=== PATIENT | female | born 1960 | race American Indian/Alaskan Native ===

== ENCOUNTER 2019-04-10 06:53 | Day surgery (SDC) | payer MEDICARE ==
[2019-04-10 07:27] VITALS: BMI 33.4
[2019-04-10 07:34] VITALS: RESP 18
[2019-04-10] MEDS ORDERED: Propofol 10 mg/ml Inj (20 ML) ONE (09:09)
--- NOTE | 2019-04-10 09:10 | CP.SDSHP ---
Same Day Surgery H & P - History Proposed Procedure: COLONSCOPY Pre-Op Diagnosis: SEE NOTES - Previous Medical/Surgical History Endocrine/Metabolic: Diabetes Neuro: Other Misc: Other Pain: 2.Mild Pain - Allergies Allergies: Allergies No Known Allergies Allergy (Verified 04/10/19 07:25) - Physical Exam General Appearance: N Vital Signs: Vital Signs 04/10/19 07:27 Temperature 98.4 F Pulse Rate 74 Respiratory 18 Rate Blood Pressure 172/81 H O2 Sat by Pulse 94 L Oximetry Mental Status: Alert & Oriented x3 Neuro: WNL Heart: WNL Lungs: WNL GI: Other - {Optional Preform as Required} Breast: WNL Abdomen: Other Rectal: Other Integument: WNL [employer]: WNL Ortho: WNL ENT: WNL - Impression Pt. Evaluated Today:Candidate for Anesthesia & Procedure: Yes - Date & Time Time: 09:10 Short Stay Discharge - Short Stay Discharge Admitting Diagnosis/Reason for Visit: SCREENING Disposition: HOME/ ROUTINE Referrals: Efrain Bhakta MD [Primary Care Provider] -
[2019-04-10 10:24] VITALS: TEMP 98; O2SAT 100
[2019-04-10 10:31] VITALS: BP 112/63; PULSE 86
== END 2019-04-10 11:04 | disposition home or self-care (01) ==
LOC: C.ENDO 06:53
PROVIDERS: ATTEND Specialist
DX: Z12.11 Encounter for screening for malignant neoplasm of colon (principal); K64.4 Residual hemorrhoidal skin tags; K64.8 Other hemorrhoids; K58.9 Irritable bowel syndrome, unspecified; E11.9 Type 2 diabetes mellitus without complications; F31.9 Bipolar disorder, unspecified; F17.210 Nicotine dependence, cigarettes, uncomplicated; Z79.84 Long term (current) use of oral hypoglycemic drugs; Z79.899 Other long term (current) drug therapy
CPT/HCPCS: 45380; 82948; 88305; J2704